=== PATIENT | male | born 1990 | race African-American/Black ===

== ENCOUNTER 2017-07-26 11:49 | Emergency (ER) | payer OTHER ==
[~2017-07-26] VITALS: Ht 182.9 cm; Wt 72.7 kg
[2017-07-26 14:49] VITALS: BP 139/76
== END 2017-07-26 14:52 | disposition home or self-care (01) ==
LOC: M ED 11:49
DX: J02.9 Acute pharyngitis, unspecified (principal); F17.210 Nicotine dependence, cigarettes, uncomplicated

== ENCOUNTER 2018-08-05 08:45 | Emergency (ER) | payer OTHER ==
[2018-08-05] MEDS: BENZONATATE 100 MG CAP PO (10:26)
== END 2018-08-05 10:32 | disposition home or self-care (01) ==
LOC: M ED 08:45
DX: R04.0 Epistaxis (principal); J01.90 Acute sinusitis, unspecified; F17.210 Nicotine dependence, cigarettes, uncomplicated
CPT/HCPCS: 99283

== ENCOUNTER 2018-08-14 12:47 | Emergency (ER) | payer OTHER | END 2018-08-14 15:24 | disposition home or self-care (01) | LOC: M ED 12:47 | DX: S96.912A Strain of unspecified muscle and tendon at ankle and foot level, left foot, initial encounter (principal); X58.XXXA Exposure to other specified factors, initial encounter; Y92.89 Other specified places as the place of occurrence of the external cause; Y93.67 Activity, basketball; F17.200 Nicotine dependence, unspecified, uncomplicated; Z79.899 Other long term (current) drug therapy | CPT/HCPCS: 73630 ==